=== PATIENT | female | born 1935 | race Caucasian/White ===

== ENCOUNTER 2021-09-18 13:14 | Outpatient (CLI) | payer OTHER ==
[~2021-09-18 13:14] MED LIST: ALLO300T8 PO; ATOR80TA PO; BACL10TA2 PO; CALC-793 PO; CARV6.253 PO; CLOP75TA33 PO; CYAN500T71 PO; FLAX10007 PO; FURO-150 PO; INSU100V36 SQ; LANTUS SQ; LISI-642 PO; OMEG-182 PO; POTA-188 PO; TRAM50TA2 PO; VITC500T PO
== END 2021-09-18 23:59 | disposition home or self-care (01) ==
LOC: VAS 13:14
PROVIDERS: ATTEND Family Medicine
DX: I70.201 Unspecified atherosclerosis of native arteries of extremities, right leg (principal)
CPT/HCPCS: 93926